=== PATIENT | male | born 1985 | race Caucasian/White ===

== ENCOUNTER 2025-07-07 09:09 | Emergency (ER) | payer OTHER, SELFPAY ==
[2025-07-07 09:13] VITALS: BP 138/88
[2025-07-07 09:28] VITALS: BMI 27.1
--- NOTE | 2025-07-07 09:32 | ED.GENMED ---
History of Present Illness
<Tita Bhatt MD, Resident - Last Filed: 07/07/25 10:26>
General
Chief Complaint: Eye Problems
Source: patient and significant other
Exam Limitations: none
Time Seen by Provider: 07/07/25 09:22
Nursing documentation reviewed up to this point in time: agreed with
History of Present Illness
History of Present Illness:
40yo M with no significant pmh who presents with subacute pain in L eye.
A few days ago, the pt began experiencing pain in L eye. There was no specific precipitating event in which he had trauma to the eye or felt an object blow in the eye. However, was windy with dirt/leaves blowing a few days ago. Feels like something
is in the eye, feels irritated. Endorses photophobia, wearing sunglasses in the ED. Endorses blurriness in the L eye but is able to perform ADLs such as reading, work. Pain does not stop him from going to work. Endorses some tearing of L eye and
waking up with some crusting around eye; crusting is not yellow or purulent. Denies pain with EOM, denies sick contacts with pink eye, denies pruritis of eye. Denies periorbital swelling. Does not use contact lenses.
Past History
<iTta Bhatt MD, Resident - Last Filed: 07/07/25 10:26>
Past History
ED Past Medical History: None
ED Past Surgical History: None
Social History
Tobacco: Non-smoker
Alcohol: Occasional
Personal:
Living: with family
Employment: Employed
Review of Systems
<Tita Bhatt MD, Resident - Last Filed: 07/07/25 10:26>
Review of Systems
Allergies reviewed?: Yes
All Other Systems: ROS reviewed and negative except as documented in HPI and ROS
Constitutional: Reports no symptoms
EENT: Reports tearing and other (L eye irritation )
Respiratory: Reports no symptoms
Cardiac: Reports no symptoms
ABD/GI: Reports no symptoms
: Reports no symptoms
Musculoskeletal: Reports no symptoms
Skin: Reports no symptoms
Neurological: Reports other (photophobia )
Psychiatric: Reports no symptoms
Phy Exam
<Tita Bhatt MD, Resident - Last Filed: 07/07/25 10:26>
General Physical Exam
General Presentation: mild distress
General age: appears stated age
General Skin: warm and dry
General Habitus: normal
General Mental: alert
Eye Exam
Eye Exam: PERRL, EOMI, conjunctiva normal (L eye conjunctival injection ), globe normal and other (no periorbital edema )
Cardiovascular Exam
Cardiovascular Exam: regular rate/rhythm
Pulmonary Exam
Pulmonary Exam: no respiratory distress
Gastrointestinal Exam
Gastrointestinal Exam: non distended
Neurological Exam
Neurological Exam: alert
Musculoskeletal Exam
Musculoskeletal Exam: full ROM
Skin Exam
Skin Exam: normal color
Psychiatric Exam
Psychiatric Exam: normal mood/affect
Course
<Tita Bhatt MD, Resident - Last Filed: 07/07/25 10:26>
Orders/Labs/Results
Orders:
Orders
07/07/25 10:34
Fluorescein Sodium [Ful-Rosette] 3 mg .ROUTE .STK-MED ONE
Tetracaine HCl [Tetracaine 0.5% Ophthalmic Solution] 1 drop .ROUTE .STK-MED ONE
07/07/25 13:00
Polymyxin B/Trimethoprim [Polytrim Ophthalmic Solution] See Dose Instructions OPHTH QID
Vital Signs
Initial and Last Documented VS:
Initial Vital Signs
Temp Pulse Resp BP Pulse Ox
98.3 F 85 16 138/88 98
07/07/25 09:13 07/07/25 09:13 07/07/25 09:13 07/07/25 09:13 07/07/25 09:13
Last Documented Vital Signs
Temp Pulse Resp BP Pulse Ox
98.3 F 64 18 109/84 99
07/07/25 09:13 07/07/25 10:15 07/07/25 10:15 07/07/25 10:15 07/07/25 10:15
<Ayan Arellano DO - Last Filed: 07/07/25 14:39>
Orders/Labs/Results
Orders:
Orders
07/07/25 10:34
Fluorescein Sodium [Ful-Rosette] 3 mg .ROUTE .STK-MED ONE
Tetracaine HCl [Tetracaine 0.5% Ophthalmic Solution] 1 drop .ROUTE .STK-MED ONE
07/07/25 13:00
Polymyxin B/Trimethoprim [Polytrim Ophthalmic Solution] See Dose Instructions OPHTH QID
Vital Signs
Initial and Last Documented VS:
Initial Vital Signs
Temp Pulse Resp BP Pulse Ox
98.3 F 85 16 138/88 98
07/07/25 09:13 07/07/25 09:13 07/07/25 09:13 07/07/25 09:13 07/07/25 09:13
Last Documented Vital Signs
Temp Pulse Resp BP Pulse Ox
98.3 F 64 18 109/84 99
07/07/25 09:13 07/07/25 10:15 07/07/25 10:15 07/07/25 10:15 07/07/25 10:15
<Tita Bhatt MD, Resident - Last Filed: 07/07/25 10:26>
MDM/Problems Addressed
Differential Diagnosis Includes:
Ddx:
Corneal abrasion
Viral conjunctivitis
Foreign body retention
Allergic conjunctivitis
Bacterial conjunctivitis
Autoimmune
MDM/Problems Addressed:
Slit lamp exam w fluorescein
Lubricating eye drops
Analgesic eye drops
Abx eye drops if corneal abrasion
<Tita Bhatt MD, Resident - Last Filed: 07/07/25 10:26>
*Pulse Oximetry
SaO2: 98
Oxygen Mode of Delivery: Room air
Patient hypoxic: no
*Critical Care Note
Total Time (30-74mins, 75-104mins- exclusive of procedures): Not Applicable
<Tita Bhatt MD, Resident - Last Filed: 07/07/25 10:26>
Update Note
Update Note:
Slit lamp exam performed, foreign body visualized superior to L pupil
Attempted removal with cotton swab after administration of anesthetic eye drops
Foreign body unable to be removed, likely 2/2 epithelialization
Will refer to ophtho & discharge with anesthetic eye drops
ED Attending Note
<Tita Bhatt MD, Resident - Last Filed: 07/07/25 10:26>
-
Portions of this chart may have been created with voice recognition software.� Occasional wrong word or��sound alike� substitutions may have occurred due to the inherent limitations of voice recognition software.
<Ayan Arellano, DO - Last Filed: 07/07/25 14:39>
ED Attending Note
Patient seen and examined by attending physician: Yes
I performed a history and physical exam of patient and discussed management with resident, I reviewed resident's note and agree with documented findings and plan of care.: Yes
ED Attending Note:
I agree with Tita's note
Patient complaining of a foreign body or irritation in his left eye. Symptoms are most bothersome in the morning in the evening. During the day while he is active he is distracted and it does not really bother him. Mildly blurred vision but he is
able to read and continue to perform daily activities
Physical exam
Eyes: Pupils equal round and reactive to light and accommodation. Right eye has a normal appearance without any injection. Left eye has mildly injected sclera. Slit lamp exam reveals normal anterior chambers bilaterally. Fluorescein exam of the
left eye shows a punctate foreign body at about the 10 o'clock position overlying the iris. It appears epithelialized.
Tetracaine drop was instilled. Once the eye was numbed we attempted to remove the foreign body with a cotton-tipped applicator. It seems densely adherent. Contemplated trying to remove with a 30-gauge needle however I feel like this will be
fairly traumatic. Dr. Rm contacted and he is happy to see the patient in the morning in his office at 7:30 AM. Therefore we will defer removal to him. Will cover with antibiotic drops until
Discharge Plan
Departure
Patient Disposition: Home (Routine Discharge)
Date of Disposition: 07/07/25
Time of Disposition: 10:15
Patient with high blood pressure during this ER visit?: No
Condition: Fair
Covid-19: Not Applicable
Discharge Problem:
Corneal foreign body
Prescriptions:
New
polymyxin B sulf-trimethoprim 10,000 unit- 1 mg/mL drops
1 drp ophthalmic (eye) QID 5 Days Qty: 10 0RF
Referrals:
Cam Rm MD [Active, Ophthalmology] - Tomorrow
Referral Note: foreign body in L eye
NONE,* [Family Provider, Internal Medicine]
Activity Restrictions/Additional Instructions:
You were found to have a foreign body in your L eye.
We are giving you tetracaine eye drops for numbing the eye to manage pain; you can use 1 drop in the L eye before bed.
We are sending a prescription for Polytrim (antibiotic eye drops) to prevent infection. Use 1 drop in the left eye 4 times daily for 3 to 5 days.
Please follow up with Dr. Rm ([facility] tomorrow at 7:30am for removal of the foreign body (we were unable to remove it with a cotton swab today).
Interventions
Interventions:
*Nursing Disposition Last Done: 07/07/25 10:29
Discharge Date and Time
Discharge Date/Time: 07/07/25 10:36
Print Language: ICELANDIC
[2025-07-07 10:15] VITALS: BP 109/84
== END 2025-07-07 10:36 | disposition home or self-care (01) ==
LOC: EMR 09:09
PROVIDERS: EMERGENCY PHYSICIAN Emergency Medicine
DX: T15.02XA Foreign body in cornea, left eye, initial encounter (principal); W44.9XXA Unspecified foreign body entering into or through a natural orifice, initial encounter
CPT/HCPCS: 99283